=== PATIENT | female | born 1960 | race Two or more races ===

== ENCOUNTER 2019-08-28 06:10 | Day surgery (SDC) | payer OTHER ==
[~2019-08-28 06:10] MED LIST: AVAPRO150 MG PO; CATAFLAN PO; CLONAZEPAM1 MG PO; FOLGARD TABLET1 EACH PO; GABAPENTIN800 MG PO; LIPITOR40 MG PO; LYRICA50 MG PO; NEUROTIN PO; PRILOSEC OTC20 MG PO; PROZAC20 MG PO; SEROQUEL PO; TRAZODONE HCL150 MG PO; WELLBUTRIN SR150 MG PO
== END 2019-08-28 15:00 | disposition home or self-care (01) ==
LOC: CIR.AMB 06:10
DX: M13.841 Other specified arthritis, right hand (principal)

== ENCOUNTER 2020-08-06 06:15 | Day surgery (SDC) | payer OTHER ==
[~2020-08-06 06:15] MED LIST changes: +CRESTOR10 MG PO
== END 2020-08-06 16:08 | disposition home or self-care (01) ==
LOC: CIR.AMB 06:15 → AMB-ENDOS 09:30 → CIR.AMB 09:30
PROVIDERS: ATTEND Colon & Rectal Surgery
DX: K64.4 Residual hemorrhoidal skin tags (principal); Z20.828 Contact with and (suspected) exposure to other viral communicable diseases

== ENCOUNTER 2020-12-24 07:00 | Day surgery (SDC) | payer OTHER ==
[~2020-12-24] VITALS: Ht 154.9 cm; Wt 63.5 kg
[2020-12-24] MEDS ORDERED: DIAZEPAM5 MG PO (07:40)
[2020-12-24] MEDS ORDERED: COLACE100 MG PO (07:40)
== END 2020-12-25 12:00 | disposition home or self-care (01) ==
LOC: CIR.AMB 07:00 → SURH 10:42 → CIR.AMB 10:42 → O/R 10:42 → SURH 11:00 → CIR.AMB 12-25 12:00 → SURH 12-25 13:49
PROVIDERS: ATTEND Orthopaedic Surgery Orthopaedic Surgery of the Spine
DX: M50.021 Cervical disc disorder at C4-C5 level with myelopathy (principal); M48.12 Ankylosing hyperostosis [Forestier], cervical region; Z20.822 Contact with and (suspected) exposure to COVID-19
CPT/HCPCS: 22551; 20930; 20939; 22845; 22853; C1776

== ENCOUNTER 2021-03-20 07:08 | Day surgery (SDC) | payer OTHER ==
[~2021-03-20 07:08] MED LIST changes: +COLACE100 MG PO; +DIAZEPAM5 MG PO
== END 2021-03-20 10:25 | disposition home or self-care (01) ==
LOC: AMB-ENDOS 07:08
PROVIDERS: ATTEND Colon & Rectal Surgery
DX: D12.2 Benign neoplasm of ascending colon (principal); Z20.822 Contact with and (suspected) exposure to COVID-19; K64.2 Third degree hemorrhoids